=== PATIENT | female | born 1995 | race Hispanic/Latino ===

== ENCOUNTER 2025-06-05 11:14 | Emergency (ER) | payer SELFPAY ==
[~2025-06-05] VITALS: Ht 160 cm; Wt 86.2 kg
[2025-06-05 12:02] LABS: IMMATURE GRANULOCYTE ABSOLUTE 0.01 K/uL (0-1); NUCLEATED RED BLOOD CELLS 0.0 % (0.0-0.19); PLATELET COUNT (AUTO) 340 K/uL (130-400); RED BLOOD CELL COUNT(AUTO) 4.39 MIL/uL (4.00-5.50); RED CELL DISTRIBUTION WIDTH 12.4 % (11.0-15.5); WHITE BLOOD COUNT (AUTO) 6.8 K/uL (4.8-10.8)
[2025-06-05 12:16] LABS: CREATININE 0.8 mg/dL (0.5-1.0); GLOMERULAR FILTR. RATE CALC 102.0 mL/min (>90); GLUCOSE,RANDOM 93.0 mg/dL (70-105); SODIUM SERUM 141.0 mmol/L (136-145); UREA NITROGEN, BLOOD 13.0 mg/dL (7-18)
--- NOTE | 2025-06-05 12:36 | EKG ---
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
--- NOTE | 2025-06-05 12:39 | HMCIMG ---
EXAM: CR Thoracic Spine, 3 View. CLINICAL HISTORY: pain COMPARISON: None provided. FINDINGS: Dextrocurvature of the thoracic spine centered at T10. Straightening of the thoracic spine may reflect paraspinal muscle spasm. BONES: No acute fracture or aggressive appearing osseous lesion. DISCS / DEGENERATIVE CHANGES: The disc spaces are preserved. SOFT TISSUES: The paraspinal soft tissue lines are unremarkable. The visualized lungs are clear. MISCELLANEOUS: Visualization of the upper thoracic spine is limited on the lateral view by overlying structures. IMPRESSION: 1. Dextrocurvature of the thoracic spine centered at T10, with possible paraspinal muscle spasm. 2. No acute fracture or aggressive osseous lesion. /[place]
[2025-06-05] MEDS ORDERED: METH100054 PO (13:24)
[2025-06-05] MEDS ORDERED: LIDO1ADH82 TP (13:24)
[2025-06-05] MEDS ORDERED: KETO10TA2 PO (13:24)
--- NOTE | 2025-06-05 13:24 | ERN ---
ED Note History of Present Illness Stated Complaint: CHRONIC BACK PAIN Chief Complaint: Back Pain-No Injury Time Seen by MD: 11:17 Time Seen by Midlevel: 11:20 Dictation: 29-year-old with no past medical history coming in complaining of mid back pain, states has had back pain for one year however on Thursday it worsened after she went running. Patient also stating that she has had two episodes of sharp chest pain in the last couple of days. Denies any SOB cough, congestion, fever, nausea or vomiting or any diarrhea. Denies any unilateral weakness, numbness tingling or any incontinence. Allergies: Coded Allergies: No Known Allergies (Unverified Allergy, Unknown, 06/05/25) Past Medical History Past Medical History: Other Additional Past Medical Hx: CHRONIC BACK PAIN Surgical History: BTL LMP: May 24, 2025 Review of System Dictation Constitutional: Negative for fever,chills, and weight loss Eyes: Negative for injury, pain,redness, and discharge ENT: Negative for injury,pain or swelling Cardiovascular: Negative for chest pain, palpitations, and edema Respiratory: Negative for shortness of breath, cough, and wheezing, Abdomen/GI: Negative for abdominal pain, nausea, vomiting, diarrhea, and constipation Back: Negative for injury and pain, complaining of mid back pain : Negative for injury, bleeding and discharge MS/Extremity: Negative for injury and deformity Skin: Negative for rash, and discoloration Neuro: Negative for headache, weakness, numbness, tingling, and seizure Psych: Negative for suicide ideation, homicidal ideation, and hallucinations Review of Systems: was completed Initial Vital Sign VS Vital Signs Date Time Temp Pulse Resp B/P (MAP) Pulse Ox O2 Delivery O2 Flow Rate FiO2 06/05/25 11:16 98.2 93 16 121/69 99 Room Air 0 Physical Exam Dictation General: awake, alert, NAD Head/Face: Normocephalic, atraumatic Eyes: PERRL, EOMI, vision at baseline ENT: oral cavity clear, TMs clear, no signs of infection Neck: Trachea midline, supple, no nuchal rigidity Cardiovascular: RRR, normal S1/S2, No MRGs, no JVD Respiratory: CTAB, no respiratory distress, No rales or wheezes Abdomen: Soft, non-tender, non-distended, normal bowel sounds, no guarding or rebound. Skin: Warm, dry, normal turgor, no rash MS/Extremity: Pulses equal, no cyanosis, neurovascular intact, FROM Neuro: COAx4, GCS 15, strength 5/5, CN 2-12 intact, normal cerebellar exam, normal gait, Psych: Normal behavior, mood, and affect normal Results (Laboratory/Radiology) Laboratory/Radiology Laboratory Tests Test 06/05/25 11:56 White Blood Count 6.8 K/uL (4.8-10.8) Red Blood Count 4.39 MIL/uL (4.00-5.50) Hemoglobin 12.9 g/dL (12.0-16.0) Hematocrit 39.6 % (36-48) Mean Corpuscular Volume 90.2 fL (79-99) Mean Corpuscular Hemoglobin 29.4 pg (27.0-33.0) Mean Corpuscular Hemoglobin Concent 32.6 g/dL (32.0-36.0) Red Cell Distribution Width 12.4 % (11.0-15.5) Platelet Count 340 K/uL (130-400) Mean Platelet Volume 8.8 fL (7.5-10.5) Immature Granulocyte % (Auto) 0.1 % (0-1) Neutrophils (%) (Auto) 57.2 % (40.0-77.0) Lymphocytes (%) (Auto) 34.4 % (21.0-51.0) Monocytes (%) (Auto) 5.9 % (3.0-13.0) Eosinophils (%) (Auto) 1.8 % (0.0-8.0) Basophils (%) (Auto) 0.6 % (0.0-5.0) Neutrophils # (Auto) 3.9 K/uL (1.8-7.7) Lymphocytes # (Auto) 2.3 K/uL (1.0-4.8) Monocytes # (Auto) 0.4 K/uL (0.1-1.0) Eosinophils # (Auto) 0.12 K/uL (0.00-0.70) Basophils # (Auto) 0.04 K/uL (0.00-0.20) Absolute Immature Granulocyte (auto 0.01 K/uL (0-1) Nucleated Red Blood Cells 0.0 % (0.0-0.19) Sodium Level 141 mmol/L (136-145) Potassium Level 4.3 mmol/L (3.5-5.1) Chloride Level 103 mmol/L (101-111) Carbon Dioxide Level 32 mmol/L (21-32) Blood Urea Nitrogen 13 mg/dL (7-18) Creatinine 0.8 mg/dL (0.5-1.0) Glomerular Filtration Rate Calc 102 mL/min (>90) Random Glucose 93 mg/dL (70-105) Total Calcium 9.2 mg/dL (8.5-10.1) Troponin I High Sensitivity < 4 ng/L (4-50) L Labs Reviewed?: Yes ED Course ED Course Orders Procedure Category Date Status Time Cbc With Differential LAB 06/05/25 Complete 11:31 Basic Metabolic Panel LAB 06/05/25 Complete 11:31 Troponin I High LAB 06/05/25 Complete Sensitivity 11:31 12 Lead Ekg Tracing- EKG 06/05/25 Complete Technical 11:31 Thoracic Spine 3vws RAD 06/05/25 Resulted 11:31 Ketorolac PHA 06/05/25 Complete Tromethamine 30mg/Ml 12:00 Methocarbamol PHA 06/05/25 Complete (Methocarbamol) 12:00 Lidocaine (Lidocaine PHA 06/05/25 Complete Patch 4%) 12:00 Triamcinolone Acet PHA 06/05/25 Complete 40mg/Ml 1ml (Kenalog 11:31 Current Medications Medications (Trade) Dose Ordered Sig/Monie Route PRN Reason Start Time Stop Time Status Last Admin Dose Admin Ketorolac Tromethamine (toRADol) 30 mg ONCE ONCE IM 06/05/25 12:00 06/05/25 12:01 DC Lidocaine (Lidocaine Patch 4%) 1 each ONCE ONCE TP 06/05/25 12:00 06/05/25 12:01 DC Methocarbamol (methoCARBamol) 1,000 mg ONCE ONCE PO 06/05/25 12:00 06/05/25 12:01 DC Triamcinolone Acetonide (Kenalog 40) 40 mg ONCE STAT IM 06/05/25 11:31 06/05/25 11:35 DC Vital Signs Date Time Temp Pulse Resp B/P (MAP) Pulse Ox O2 Delivery O2 Flow Rate FiO2 06/05/25 11:16 98.2 93 16 121/69 99 Room Air 0 Medical Decision Making MDM MDM: 29-year-old with no past medical history coming in complaining of mid back pain, radiates to bilateral shoulders and up to her neck. states has had back pain for one year however on Thursday it worsened after she went running. Patient also stating that she has had two episodes of sharp chest pain in the last couple of days. Denies any SOB cough, congestion, fever, nausea or vomiting or any diarrhea. Denies any unilateral weakness, numbness tingling or any incontinence. Blood work is unremarkable. EKGs shows no STEMI. X-ray shows no acute findings possible paraspinal spasm. Patient will be discharged to go home with a muscle relaxer and anti-inflammatories. Educated to follow up with PCP. Educated on signs and symptoms of when to return back to the emergency room. Patient verbalized understanding, answered all questions. Differential diagnosis: Spasm, muscle strain, costochondritis, ACS Rationale: Tests considered and ordered secondary to shared decision making include: Previous outside records reviewed: Old ER visits. Risk of complication and/or morbidity or mortality of patient management: None Medications-Per medication reconciliation Need for hospitalization: Patient does not meet criteria for hospitalization. Need for emergency major/minor surgery: No There are no social concerns with this patient. Prescription drug management Prescriptions will include symptomatic care Patient's prior external medical records from other ER visits were reviewed by me as indicated. Prior testing and results from previous visits were reviewed. Prior tests were taken into account with medical decision making and resource utilization, independent historian/historians were used to obtain complete medical history. I independently interpreted the test that were performed, results were reviewed by me and considered findings on radiology if ordered. Medical management and examination interpretation discussions were had by me with other qualified healthcare professionals as indicated for the patient's care. DX & DISP Disposition: Discharge Departure Impression: Primary Impression: Muscle spasm Condition: Stable Scripts Methocarbamol (Methocarbamol) 1,000 Mg Tablet 1000 MG PO TID PRN for MUSCLE SPASMS for 3 Days, #9 TAB Prov: TINY MCCORD PUBLIC HEALTH TECHNOLOGIST 06/05/25 Lidocaine (Lidocaine) 4 % Adh..patch 1 PATCH TP DAILY for 10 Days, #10 PATCH 0 Refills Prov: TINY MCCORD PUBLIC HEALTH TECHNOLOGIST 06/05/25 Ketorolac Tromethamine (Ketorolac Tromethamine) 10 Mg Tablet 1 TAB PO Q6HPRN PRN for pain for 5 Days, #20 TAB 0 Refills Prov: TINY MCCORD CNP 06/05/25 Referrals: SELF,REFERRAL (PCP) Time of Disposition: 13:22 I have reviewed the case, and I agree with, Diagnosis and Plan TINY MCCORD CNP Jun 05, 2025 13:24
[2025-06-05] MEDS: TRIAMCINOLONE ACETONIDE 40 MG/ML 1ML VIAL IM STA (15:24)
[2025-06-05] MEDS: LIDOCAINE 4% ADH..PATCH TP ONE (15:24)
[2025-06-05 16:10] VITALS: BP 127/78; PULSE 88; RESP 18; TEMP 98.6; O2SAT 98
== END 2025-06-05 16:14 | disposition home or self-care (01) ==
LOC: EDH 11:14
DX: M62.830 Muscle spasm of back (principal); M54.6 Pain in thoracic spine; R07.89 Other chest pain; G89.29 Other chronic pain; Z98.51 Tubal ligation status
CPT/HCPCS: 99285; 84484; 80048; 85025; 36415; 72072; 96372 ×2; 93005; J1885; J3301